=== PATIENT | female | born 1980 | race Caucasian/White ===

== ENCOUNTER → 2016-10-15 | Outpatient (CLI) | payer MEDICARE ==
--- NOTE | 2016-10-15 11:07 | MR ---
PRE AND POSTCONTRAST ENHANCED MRI OF THE BRAIN: CLINICAL HISTORY: Cranial nerve palsy CONTRAST: 6 ML Multihance COMPARISON: 05/13/2016 Multiplanar and multispin-echo imaging of the brain was performed both before and after the administr ation of contrast. The ventricles, basal cisterns and sulci overlying the cerebral convexities are within normal limits. There is no evidence for midline shift or mass effect. Acute intracranial hemorrhage or extra-axial collection is not evident. There are no abnormal areas of increased or decreased signal intensity within the brain parenchyma. Following contrast administration, there is no evidence for pathologic enhancement or enhancing mass. Near-complete opacification right maxillary sinus. Mild mucosal thickening of the ethmoid air cells. IMPRESSION: Unremarkable pre and postcontrast enhanced MRI of the brain. Chronic sinusitis.
== END | disposition home or self-care (01) ==
LOC: RADMRIMAIN 10:12
PROVIDERS: ATTEND Psychiatry & Neurology Pain Medicine
DX: G52.9 Cranial nerve disorder, unspecified (principal)
CPT/HCPCS: 70553; A9577

== ENCOUNTER → 2016-10-15 | Outpatient (CLI) | payer MEDICARE ==
[2016-10-15 12:11] LABS: ALT 34 U/L (9-52); AST 29 U/L (14-36); Alkaline Phosphatase 85 U/L (38-126); Anion Gap 10 mmol/L; Blood Urea Nitrogen 15 mg/dL (7-17); C Reactive Protein <5.0 mg/L (<10.0); Calcium 9.3 mg/dL (8.4-10.2); Carbon Dioxide 25 mmol/L (22-30); Chloride 90 mmol/L (98-107); Glucose 102 mg/dL (74-99); Non-African American GFR(MDRD) >60 (>60 ml/min/1.73 sqM); Potassium 4.6 mmol/L (3.5-5.1); Sodium 125 mmol/L (137-145); Total Bilirubin 0.4 mg/dL (0.2-1.3); Total Protein 7.3 g/dL (6.3-8.2)
[2016-10-15 12:43] LABS: Hemoglobin A1C 5.8 % (4.2-6.1)
== END | disposition home or self-care (01) ==
LOC: LABWHC1 11:04
PROVIDERS: ATTEND Psychiatry & Neurology Neurology
DX: E87.1 Hypo-osmolality and hyponatremia (principal); E08.8 Diabetes mellitus due to underlying condition with unspecified complications; I10 Essential (primary) hypertension; H49.20 Sixth [abducent] nerve palsy, unspecified eye
CPT/HCPCS: 36415; 80053; 83036; 83519; 85652; 86038; 86140

== ENCOUNTER 2016-11-28 18:29 | Emergency (ER) | payer MEDICARE ==
[2016-11-28] MEDS ORDERED: SODIUM CHLORIDE 0.9% 500 ML IV STA (18:53)
[2016-11-28] MEDS ORDERED: FAMOTIDINE 20 MG/2 ML VIAL IV STA (18:54)
--- NOTE | 2016-11-28 18:56 | ED ---
General Adult HPI - General Chief complaint: Nausea/Vomiting/Diarrhea Stated complaint: Vomiting Time Seen by Provider: 11/28/16 18:50 Source: patient, family, RN notes reviewed Mode of arrival: wheelchair Limitations: no limitations - History of Present Illness Initial comments: Patient is a pleasant 36-year-old female presenting to the emergency department complaining of nausea and vomiting. Patient did have sinus surgery done just yesterday. Patient states today she has had nausea and vomiting. Patient believes this is from the sinus surgery. Patient has had some drainage and bleeding that she has swallowed. Patient feels nauseous. No abdominal pain. Patient had sinus surgery secondary to an eye infection. Patient states the eye infection is starting to slowly improve and a sinus surgery was done to hopefully help with this. - Related Data Home Medications Medication Instructions Recorded Confirmed Insulin Aspart [NovoLOG Flexpen] See Protocol SQ AC-TID 12/19/15 11/28/16 Insulin Glargine [Lantus] 3 unit SQ HS 07/26/16 11/28/16 Insulin Glargine [Lantus] 4 unit SQ QAM 07/26/16 11/28/16 Amoxic-Pot Clav 875-125Mg 1 tab PO Q12HR 11/28/16 11/28/16 [Augmentin 875-125] HYDROcodone/APAP 5-325MG [[place] 1 tab PO Q4HR PRN 11/28/16 11/28/16 5-325] Lisinopril [Zestril] 20 mg PO BID 11/28/16 11/28/16 Allergies Allergy/AdvReac Type Severity Reaction Status Date / Time No Known Allergies Allergy Verified 11/28/16 19:06 Review of Systems ROS Statement: Those systems with pertinent positive or pertinent negative responses have been documented in the HPI. ROS Other: All systems not noted in ROS Statement are negative. Constitutional: Denies: fever Eyes: Reports: as per HPI ENT: Reports: as per HPI Respiratory: Denies: cough Cardiovascular: Denies: chest pain Endocrine: Denies: fatigue Gastrointestinal: Reports: nausea, vomiting. Denies: abdominal pain Genitourinary: Denies: dysuria Musculoskeletal: Denies: back pain Skin: Denies: rash Neurological: Denies: weakness Past Medical History Past Medical History: Diabetes Mellitus, Hypertension Additional Past Medical History / Comment(s): anorexia; nerve palsy right eye History of Any Multi-Drug Resistant Organisms: None Reported Past Surgical History: Orthopedic Surgery Additional Past Surgical History / Comment(s): rt hip, sinus surgery Past Anesthesia/Blood Transfusion Reactions: No Reported Reaction Past Psychological History: Anxiety Smoking Status: Never smoker Past Alcohol Use History: None Reported Past Drug Use History: None Reported - Past Family History Mother Family Medical History: Hypertension General Exam Limitations: no limitations General appearance: alert, in no apparent distress, cachectic Head exam: Present: atraumatic Eye exam: Present: other (Left eye appears normal. Right eye is patched) ENT exam: Present: normal oropharynx, other (Mild oozing from bilateral nares) Neck exam: Present: normal inspection Respiratory exam: Present: normal lung sounds bilaterally Cardiovascular Exam: Present: normal rhythm, tachycardia Expanded Peripheral pulses: 2+: Radial (R), Radial (L), Dorsalis Pedis (R), Dorsalis Pedis (L) GI/Abdominal exam: Present: soft. Absent: distended, tenderness, guarding, rebound, rigid Extremities exam: Present: normal inspection Neurological exam: Present: alert Psychiatric exam: Present: normal affect, normal mood Skin exam: Absent: rash Course Vital Signs 11/28/16 18:42 Temperature 98.4 F Pulse Rate 120 H Respiratory 20 Rate Blood Pressure 141/93 O2 Sat by Pulse 96 Oximetry Medical Decision Making - Medical Decision Making Patient reevaluated and resting comfortably in bed. Patient states hyponatremia is chronic. Patient still has some nausea. Patient has had problems previously with Reglan. Patient does not want Benadryl. Patient is receptive to Bentyl and Protonix. - Lab Data Result diagrams: 11/28/16 18:54 11/28/16 18:54 Lab Results 11/28/16 11/28/16 Range/Units 18:54 18:54 WBC 9.7 (3.8-10.6) k/uL RBC 3.75 L (3.80-5.40) m/uL Hgb 11.9 (11.4-16.0) gm/dL Hct 36.0 (34.0-46.0) % MCV 95.8 (80.0-100.0) fL MCH 31.8 (25.0-35.0) pg MCHC 33.2 (31.0-37.0) g/dL RDW 12.5 (11.5-15.5) % Plt Count 254 (150-450) k/uL Neutrophils % 86 % Lymphocytes % 6 % Monocytes % 6 % Eosinophils % 1 % Basophils % 0 % Neutrophils # 8.3 H (1.3-7.7) k/uL Lymphocytes # 0.6 L (1.0-4.8) k/uL Monocytes # 0.6 (0-1.0) k/uL Eosinophils # 0.1 (0-0.7) k/uL Basophils # 0.0 (0-0.2) k/uL Sodium 129 L (137-145) mmol/L Potassium 5.0 (3.5-5.1) mmol/L Chloride 95 L (98-107) mmol/L Carbon Dioxide 23 (22-30) mmol/L Anion Gap 11 mmol/L BUN 15 (7-17) mg/dL Creatinine 0.64 (0.52-1.04) mg/dL Est GFR (MDRD) Af Amer >60 (>60 ml/min/1.73 sqM) Est GFR (MDRD) Non-Af >60 (>60 ml/min/1.73 sqM) Glucose 132 H (74-99) mg/dL Calcium 9.7 (8.4-10.2) mg/dL Total Bilirubin 0.8 (0.2-1.3) mg/dL AST 39 H (14-36) U/L ALT 26 (9-52) U/L Alkaline Phosphatase 91 (38-126) U/L Total Protein 7.9 (6.3-8.2) g/dL Albumin 4.6 (3.5-5.0) g/dL Disposition Clinical Impression: Nausea and vomiting Disposition: HOME SELF-CARE Instructions: Acute Nausea and Vomiting (ED) Additional Instructions: Please follow-up with your primary care physician and surgeon in the beginning of the week. Return for uncontrolled vomiting, not tolerating fluids, bleeding , worsening symptoms or other concerns. Referrals: Herman Ford MD [Primary Care Provider] - 1-2 days Time of Disposition: 20:27
[2016-11-28] MEDS: ONDANSETRON 4 MG/2 ML VIAL IVP STA ×2 (18:58→19:34)
[2016-11-28 19:17] LABS: Basophils % (A) 0 %; CH 32.9; CHCM 34.5; Eosinophils # (A) 0.1 k/uL (0-0.7); Eosinophils % (A) 1 %; HDW 2.37; HGB 11.9 gm/dL (11.4-16.0); Luc # (Auto) 0.08; Luc % (Auto) 1; Lymphocytes # (A) 0.6 k/uL (1.0-4.8); Lymphocytes % (A) 6 %; MCH 31.8 pg (25.0-35.0); MCHC 33.2 g/dL (31.0-37.0); MCV 95.8 fL (80.0-100.0); Mean Platelet Volume 6.3; Monocytes # (A) 0.6 k/uL (0-1.0); Monocytes % (A) 6 %; Neutrophils # (A) 8.3 k/uL (1.3-7.7); Neutrophils % (A) 86 %; RBC 3.75 m/uL (3.80-5.40); RDW 12.5 % (11.5-15.5); WBC 9.7 k/uL (3.8-10.6)
[2016-11-28 19:41] LABS: ALT 26 U/L (9-52); AST 39 U/L (14-36); Alkaline Phosphatase 91 U/L (38-126); Anion Gap 11 mmol/L; Blood Urea Nitrogen 15 mg/dL (7-17); Calcium 9.7 mg/dL (8.4-10.2); Carbon Dioxide 23 mmol/L (22-30); Chloride 95 mmol/L (98-107); Glucose 132 mg/dL (74-99); Non-African American GFR(MDRD) >60 (>60 ml/min/1.73 sqM); Sodium 129 mmol/L (137-145); Total Bilirubin 0.8 mg/dL (0.2-1.3); Total Protein 7.9 g/dL (6.3-8.2)
[2016-11-28] MEDS ORDERED: DICYCLOMINE 10 MG/ML 2 ML AMP IM STA (20:26)
[2016-11-28] MEDS ORDERED: PANTOPRAZOLE 40 MG/10 ML VIAL IVP STA (20:26)
[2016-11-28 21:31] VITALS: BP 144/85; PULSE 103; RESP 16; TEMP 98.7
== END 2016-11-28 21:31 | disposition home or self-care (01) ==
LOC: EC 18:29
DX: R11.2 Nausea with vomiting, unspecified (principal); E11.9 Type 2 diabetes mellitus without complications; I10 Essential (primary) hypertension; F41.9 Anxiety disorder, unspecified; Z79.4 Long term (current) use of insulin; Z79.899 Other long term (current) drug therapy
CPT/HCPCS: 36415; 80053; 85025; 99284; 96374; 96375 ×2; 96361; 96372; J0500; J2405; C9113

== ENCOUNTER → 2017-05-08 | Outpatient (CLI) | payer MEDICARE ==
--- NOTE | 2017-05-08 10:01 | MR ---
EXAMINATION TYPE: MR brain wo/w con DATE OF EXAM: 05/08/2017 9:36 AM COMPARISON: Previous study dated 10/15/2016 HISTORY: Double vision, facial/eye pain, 6th central nerve palsy TECHNIQUE: Multiplanar, multiecho imaging of the brain was obtained with and without intravenous adm inistration of 3 mL intravenous Gadavist. FINDINGS: Central structures are midline. There is a normal craniocervical junction. Echoplanar diffusion imaging is normal. There is chronic mucoperiosteal thickening involving the right maxillary sinus. Both orbits are unremarkable. There are normal vascular flow voids present bilaterally. There is no evidence of a CP angle mass lesion. There is no focal lesion, mass effect or midline shift identified. I do not see evidence of intracran ial blood. Following the intravenous administration of gadolinium, no abnormal enhancement is seen. IMPRESSION: 1. NO ACUTE INTRACRANIAL ABNORMALITY. 2. 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
== END | disposition home or self-care (01) ==
LOC: RADMRIMAIN 08:58
PROVIDERS: ATTEND Psychiatry & Neurology Pain Medicine
DX: H49.20 Sixth [abducent] nerve palsy, unspecified eye (principal)
CPT/HCPCS: 70553; A9581

== ENCOUNTER 2017-06-21 05:04 | Inpatient (IN) | payer MEDICARE ==
[2017-06-21] MEDS ORDERED: SODIUM CHLORIDE 0.9% 500 ML IV STA (05:16)
--- NOTE | 2017-06-21 05:19 | ED ---
General Adult HPI - General Chief complaint: Syncope Stated complaint: syncope/fall Time Seen by Provider: 06/21/17 05:05 Source: patient, EMS, RN notes reviewed, old records reviewed Mode of arrival: EMS Limitations: no limitations - History of Present Illness Initial comments: 37-year-old female with history of anorexia and type 1 diabetes presents with syncopal episode. Patient was at home, woke up feeling very shaky. Checked her blood sugar was 44. Patient sat down to eat something, became very nauseated and the next thing she remembers she was on the ground. Patient is accompanied by her mother who states she regained consciousness after collapse. No seizure-like activity. Patient is complaining of headache and pain in her tailbone. Denies any changes in her insulin regimen. Denies chest pain. Denies current nausea or vomiting. Denies fever or chills. Denies diarrhea. - Related Data Home Medications Medication Instructions Recorded Confirmed Insulin Aspart [NovoLOG Flexpen] See Protocol SQ AC-TID 12/19/15 06/21/17 Insulin Glargine [Lantus] 3 unit SQ HS 07/26/16 06/21/17 Insulin Glargine [Lantus] 4 unit SQ QAM 07/26/16 06/21/17 Amoxic-Pot Clav 875-125Mg 1 tab PO Q12HR 11/28/16 06/21/17 [Augmentin 875-125] HYDROcodone/APAP 5-325MG [[place] 1 tab PO Q4HR PRN 11/28/16 06/21/17 5-325] Lisinopril [Zestril] 20 mg PO BID 11/28/16 06/21/17 Allergies Allergy/AdvReac Type Severity Reaction Status Date / Time No Known Allergies Allergy Verified 06/21/17 05:09 Review of Systems ROS Statement: Those systems with pertinent positive or pertinent negative responses have been documented in the HPI. ROS Other: All systems not noted in ROS Statement are negative. Past Medical History Past Medical History: Diabetes Mellitus, Hypertension Additional Past Medical History / Comment(s): anorexia; nerve palsy right eye History of Any Multi-Drug Resistant Organisms: None Reported Past Surgical History: Orthopedic Surgery Additional Past Surgical History / Comment(s): rt hip, sinus surgery Past Anesthesia/Blood Transfusion Reactions: No Reported Reaction Past Psychological History: Anxiety, Depression Smoking Status: Never smoker Past Alcohol Use History: None Reported Past Drug Use History: None Reported - Past Family History Mother Family Medical History: Hypertension General Exam Limitations: no limitations General appearance: alert, in no apparent distress, cachectic Head exam: Present: atraumatic, normocephalic Eye exam: Present: normal appearance, PERRL ENT exam: Present: mucous membranes dry Neck exam: Present: normal inspection, full ROM. Absent: tenderness, meningismus Respiratory exam: Present: normal lung sounds bilaterally. Absent: respiratory distress Cardiovascular Exam: Present: regular rate, normal rhythm GI/Abdominal exam: Present: soft. Absent: distended, tenderness Extremities exam: Present: normal inspection, normal capillary refill Neurological exam: Present: alert, oriented X3, CN II-XII intact. Absent: motor sensory deficit Psychiatric exam: Present: normal affect, normal mood Skin exam: Present: warm, dry, intact Course Vital Signs 06/21/17 06/21/17 06/21/17 05:05 06:08 06:39 Temperature 97.1 F L 97.8 F 97.9 F Pulse Rate 67 77 81 Respiratory 20 20 18 Rate Blood Pressure 120/75 109/70 103/64 O2 Sat by Pulse 100 98 100 Oximetry - Reevaluation(s) Reevaluation #1: 06/21/17 07:09 Patient's primary care physician paged and called from the emergency department with no response. I will admit awaiting callback. EKG Findings - EKG Comments: EKG Findings:: EKG shows normal sinus rhythm, right axis deviation, ventricular rate 66, OK interval 126, castration 76, QTC 419, no signs of ischemia. Medical Decision Making - Medical Decision Making 37-year-old female presenting with syncopal episode. Patient did have a blood sugar 44 at home. Blood sugar in the emergency Department is normal. No change in her insulin regimen. Given the fall with head injury, head CT is obtained, this is negative for intracranial hemorrhage, cervical spine negative for fracture subluxation. Chest x-ray shows no acute findings. Pelvic x-ray shows no acute bony abnormality. White blood cell count normal 9.6, hemoglobin stable 12.4. Sodium is 120, patient does have history of chronic hyponatremia and baseline around 1:30. Urinalysis is pending. Diagnosis: Syncope, hyponatremia, hypoglycemia resolved - Lab Data Result diagrams: 06/21/17 05:30 06/21/17 05:30 Lab Results 06/21/17 06/21/17 06/21/17 Range/Units 05:23 05:30 05:30 WBC 9.6 (3.8-10.6) k/uL RBC 4.11 (3.80-5.40) m/uL Hgb 12.2 (11.4-16.0) gm/dL Hct 36.9 (34.0-46.0) % MCV 89.8 (80.0-100.0) fL MCH 29.7 (25.0-35.0) pg MCHC 33.1 (31.0-37.0) g/dL RDW 14.0 (11.5-15.5) % Plt Count 266 (150-450) k/uL Neutrophils % 57 % Lymphocytes % 31 % Monocytes % 7 % Eosinophils % 3 % Basophils % 0 % Neutrophils # 5.5 (1.3-7.7) k/uL Lymphocytes # 3.0 (1.0-4.8) k/uL Monocytes # 0.6 (0-1.0) k/uL Eosinophils # 0.3 (0-0.7) k/uL Basophils # 0.0 (0-0.2) k/uL PT (9.0-12.0) sec INR (<1.2) APTT (22.0-30.0) sec Sodium (137-145) mmol/L Potassium (3.5-5.1) mmol/L Chloride (98-107) mmol/L Carbon Dioxide (22-30) mmol/L Anion Gap mmol/L BUN (7-17) mg/dL Creatinine (0.52-1.04) mg/dL Est GFR (MDRD) Af Amer (>60 ml/min/1.73 sqM) Est GFR (MDRD) Non-Af (>60 ml/min/1.73 sqM) Glucose (74-99) mg/dL POC Glucose (mg/dL) 88 (75-99) mg/dL POC Glu Feeder Switchboard Operator ID Nas Silverman Calcium (8.4-10.2) mg/dL Magnesium (1.6-2.3) mg/dL Total Bilirubin (0.2-1.3) mg/dL AST (14-36) U/L ALT (9-52) U/L Alkaline Phosphatase (38-126) U/L Total Creatine Kinase 212 H (30-135) U/L CK-MB (CK-2) 3.8 H* (0.0-2.4) ng/mL CK-MB (CK-2) Rel Index 1.8 Troponin I <0.012 (0.000-0.034) ng/mL Total Protein (6.3-8.2) g/dL Albumin (3.5-5.0) g/dL 06/21/17 06/21/17 Range/Units 05:30 05:30 WBC (3.8-10.6) k/uL RBC (3.80-5.40) m/uL Hgb (11.4-16.0) gm/dL Hct (34.0-46.0) % MCV (80.0-100.0) fL MCH (25.0-35.0) pg MCHC (31.0-37.0) g/dL RDW (11.5-15.5) % Plt Count (150-450) k/uL Neutrophils % % Lymphocytes % % Monocytes % % Eosinophils % % Basophils % % Neutrophils # (1.3-7.7) k/uL Lymphocytes # (1.0-4.8) k/uL Monocytes # (0-1.0) k/uL Eosinophils # (0-0.7) k/uL Basophils # (0-0.2) k/uL PT 10.7 (9.0-12.0) sec INR 1.1 (<1.2) APTT 21.3 L (22.0-30.0) sec Sodium 120 L* (137-145) mmol/L Potassium 4.8 (3.5-5.1) mmol/L Chloride 89 L (98-107) mmol/L Carbon Dioxide 23 (22-30) mmol/L Anion Gap 8 mmol/L BUN 16 (7-17) mg/dL Creatinine 0.83 (0.52-1.04) mg/dL Est GFR (MDRD) Af Amer >60 (>60 ml/min/1.73 sqM) Est GFR (MDRD) Non-Af >60 (>60 ml/min/1.73 sqM) Glucose 115 H (74-99) mg/dL POC Glucose (mg/dL) (75-99) mg/dL POC Glu Feeder Switchboard Operator ID Calcium 9.2 (8.4-10.2) mg/dL Magnesium 1.9 (1.6-2.3) mg/dL Total Bilirubin 0.3 (0.2-1.3) mg/dL AST 29 (14-36) U/L ALT 31 (9-52) U/L Alkaline Phosphatase 93 (38-126) U/L Total Creatine Kinase (30-135) U/L CK-MB (CK-2) (0.0-2.4) ng/mL CK-MB (CK-2) Rel Index Troponin I (0.000-0.034) ng/mL Total Protein 6.8 (6.3-8.2) g/dL Albumin 4.0 (3.5-5.0) g/dL Disposition Clinical Impression: Syncope and collapse, Hyponatremia Disposition: ADMITTED IP TO THIS [facility] Condition: Stable Decision to Admit Reason: Admit from EC Decision Date: 06/21/17 Decision Time: 06:52
[2017-06-21 05:26] LABS: Glucose,Whole Blood 88 mg/dL (75-99)
[2017-06-21 05:38] LABS: Basophils % (A) 0 %; CH 30.1; CHCM 33.6; Eosinophils # (A) 0.3 k/uL (0-0.7); Eosinophils % (A) 3 %; HCT 36.9 % (34.0-46.0); HDW 2.26; HGB 12.2 gm/dL (11.4-16.0); Luc # (Auto) 0.13; Luc % (Auto) 1; Lymphocytes % (A) 31 %; MCH 29.7 pg (25.0-35.0); MCHC 33.1 g/dL (31.0-37.0); MCV 89.8 fL (80.0-100.0); Mean Platelet Volume 6.8; Monocytes # (A) 0.6 k/uL (0-1.0); Monocytes % (A) 7 %; Neutrophils # (A) 5.5 k/uL (1.3-7.7); Neutrophils % (A) 57 %; RBC 4.11 m/uL (3.80-5.40); WBC 9.6 k/uL (3.8-10.6)
[2017-06-21 05:48] LABS: ALT 31 U/L (9-52); AST 29 U/L (14-36); Alkaline Phosphatase 93 U/L (38-126); Anion Gap 8 mmol/L; Blood Urea Nitrogen 16 mg/dL (7-17); Calcium 9.2 mg/dL (8.4-10.2); Carbon Dioxide 23 mmol/L (22-30); Chloride 89 mmol/L (98-107); Glucose 115 mg/dL (74-99); Magnesium 1.9 mg/dL (1.6-2.3); Non-African American GFR(MDRD) >60 (>60 ml/min/1.73 sqM); Potassium 4.8 mmol/L (3.5-5.1); Total Bilirubin 0.3 mg/dL (0.2-1.3); Total Protein 6.8 g/dL (6.3-8.2)
[2017-06-21 05:52] LABS: Sodium 120 mmol/L (137-145)
[2017-06-21 06:02] LABS: INR 1.1 (<1.2); Prothrombin Time 10.7 sec (9.0-12.0)
[2017-06-21 06:04] LABS: Creatine Kinase 212 U/L (30-135)
[2017-06-21 06:07] LABS: Partial Thromboplastin Time 21.3 sec (22.0-30.0)
[2017-06-21 06:18] LABS: Troponin I <0.012 ng/mL (0.000-0.034)
[2017-06-21 06:22] LABS: Creatine Kinase MB 3.8 ng/mL (0.0-2.4)
--- NOTE | 2017-06-21 06:35 | CT ---
EXAM: CT Head Without Intravenous Contrast CLINICAL HISTORY: Syncope TECHNIQUE: Axial computed tomography images of the head/brain without intravenous contrast. CTDI is 57.4 mGy and DLP is 961 mGy-cm. This CT exam was performed using one or more of the following dose reduction techniques: automated exposure control, adjustment of the mA and/or kV according to patient size, and/or use of iterative reconstruction technique. COMPARISON: CT head dated 05/12/2016 FINDINGS: Brain: No evidence of acute infarct, hemorrhage, mass or edema. No significant white matter disease. Ventricles: Unremarkable. No ventriculomegaly. Bones/joints: Unremarkable. No acute fracture. Soft tissues: Unremarkable. Sinuses: Mild mucosal thickening of paranasal sinuses. Mastoid air cells: Unremarkable as visualized. No mastoid effusion. IMPRESSION: No acute findings. EXAM: CT Cervical Spine Without Intravenous Contrast CLINICAL HISTORY: Syncope TECHNIQUE: Axial computed tomography images of the cervical spine without intravenous contrast. CTDI is 13.5 mGy and DLP is 262 mGy-cm. This CT exam was performed using one or more of the following dose reduction techniques: automated exposure control, adjustment of the mA and/or kV according to patient size, and/or use of iterative reconstruction technique. COMPARISON: No relevant prior studies available. FINDINGS: Vertebrae: No acute fracture or traumatic malalignment. Straightening of the normal cervical lordosis, likely positional. Discs/spinal canal/neural foramina: No acute findings. No spinal canal stenosis. Soft tissues: Unremarkable. Lung apices: Unremarkable as visualized. IMPRESSION: No acute findings.
--- NOTE | 2017-06-21 06:37 | XR ---
EXAM: XR Chest, 1 View CLINICAL HISTORY: Syncope TECHNIQUE: Frontal view of the chest. COMPARISON: No relevant prior studies available. FINDINGS: Lungs: Unremarkable. No consolidation. Pleural space: Unremarkable. No pneumothorax. Heart: Unremarkable. No cardiomegaly. Mediastinum: Unremarkable. Bones/joints: Unremarkable. IMPRESSION: Normal chest x-ray.
[2017-06-21] MEDS: SODIUM CHLORIDE 0.9% 1,000 ML IV SCH ×2 (06:38→21:54)
--- NOTE | 2017-06-21 06:43 | XR ---
EXAM: XR Pelvis, 1 or 2 Views CLINICAL HISTORY: Pain TECHNIQUE: Frontal view of the pelvis. COMPARISON: No relevant prior studies available. FINDINGS: Bones/joints: Dynamic hip screw and medullary medardo noted within the right femur. No evidence of acute fracture or traumatic malalignment. Soft tissues: Unremarkable. IMPRESSION: No acute findings.
[2017-06-21] MEDS ORDERED: ACETAMINOPHEN TAB 325 MG TAB PO PRN (06:55)
[2017-06-21] MEDS ORDERED: NALOXONE 0.4 MG/ML 1 ML VIAL IV PRN (06:55)
[2017-06-21] MEDS ORDERED: HYDROcodone/APAP 5-325MG 1 EACH TAB PO PRN (07:14)
[2017-06-21 07:33] LABS: Appearance,Urine Clear (Clear); Bilirubin,Urine Negative (Negative); Glucose,Urine (UA) Negative (Negative); Ketones,Urine Negative (Negative); Leukocyte Esterase,Urine Trace (Negative); Nitrite,Urine Negative (Negative); PH, Urine 7.5 (5.0-8.0); Particle Count 507; Protein,Urine Trace (Negative); Specific Gravity,Urine 1.004 (1.001-1.035); UA Billing (MACRO vs. MICRO) MICRO; Urobilinogen,Urine <2.0 mg/dL (<2.0); WBC,Urine 9 /hpf (0-5)
[2017-06-21] MEDS ORDERED: INSULIN DETEMIR 100 UNIT/ML 10 ML VIAL SQ SCH ×2 (09:00→21:00)
[2017-06-21 11:39] VITALS: RESP 18
[2017-06-21] MEDS: LANTUS SQ SCH (11:54)
[2017-06-21 12:04] LABS: Glucose,Whole Blood 81 mg/dL (75-99)
[2017-06-21 15:23] VITALS: BMI 11.5
[2017-06-21 16:52] LABS: Glucose,Whole Blood 75 mg/dL (75-99)
[2017-06-21 20:41] LABS: Glucose,Whole Blood 118 mg/dL (75-99)
[2017-06-21] MEDS ORDERED: LANTUS SQ SCH (21:00)
[2017-06-21] MEDS ORDERED: LISINOPRIL 20 MG TAB PO STA (21:52)
[2017-06-21] MEDS: AMOXICILLIN 250 MG CAP PO SCH (21:54)
[2017-06-22 04:57] LABS: Glucose,Whole Blood 35 mg/dL (75-99)
[2017-06-22 05:05] LABS: Glucose,Whole Blood 56 mg/dL (75-99)
[2017-06-22 05:35] LABS: Glucose,Whole Blood 145 mg/dL (75-99)
[2017-06-22 06:08] LABS: Basophils % (A) 0 %; CH 29.6; CHCM 32.1; Eosinophils # (A) 0.1 k/uL (0-0.7); Eosinophils % (A) 3 %; HCT 28.4 % (34.0-46.0); HDW 2.24; Luc # (Auto) 0.04; Luc % (Auto) 1; Lymphocytes # (A) 0.7 k/uL (1.0-4.8); Lymphocytes % (A) 28 %; MCH 30.1 pg (25.0-35.0); MCHC 32.5 g/dL (31.0-37.0); MCV 92.6 fL (80.0-100.0); Mean Platelet Volume 7.3; Monocytes # (A) 0.3 k/uL (0-1.0); Monocytes % (A) 10 %; Neutrophils # (A) 1.5 k/uL (1.3-7.7); Neutrophils % (A) 58 %; RBC 3.06 m/uL (3.80-5.40); RDW 14.5 % (11.5-15.5); WBC 2.6 k/uL (3.8-10.6)
[2017-06-22 06:10] LABS: HGB 9.2 gm/dL (11.4-16.0)
[2017-06-22 06:19] LABS: ALT 31 U/L (9-52); AST 29 U/L (14-36); Alkaline Phosphatase 72 U/L (38-126); Anion Gap 9 mmol/L; Blood Urea Nitrogen 13 mg/dL (7-17); Calcium 8.9 mg/dL (8.4-10.2); Carbon Dioxide 21 mmol/L (22-30); Chloride 100 mmol/L (98-107); Glucose 144 mg/dL (74-99); Magnesium 1.8 mg/dL (1.6-2.3); Non-African American GFR(MDRD) >60 (>60 ml/min/1.73 sqM); Potassium 4.5 mmol/L (3.5-5.1); Sodium 130 mmol/L (137-145); Total Bilirubin 0.2 mg/dL (0.2-1.3)
[2017-06-22] MEDS: LANTUS SQ SCH (08:23)
[2017-06-22] MEDS: AMOXICILLIN 250 MG CAP PO SCH (08:24)
[2017-06-22] MEDS ORDERED: LISINOPRIL 20 MG TAB PO SCH ×2 (09:00→21:00)
[2017-06-22 09:15] VITALS: TEMP 97.1
[2017-06-22 11:34] LABS: Glucose,Whole Blood 96 mg/dL (75-99)
[2017-06-22] MEDS: INSULIN ASPART 100 UNIT/ML 1 ML 10 ML VIAL SQ SCH ×2 (12:00→12:01)
[2017-06-22 14:58] VITALS: BP 152/90; PULSE 70
--- NOTE | 2017-06-22 16:29 | HP ---
HISTORY AND PHYSICAL CHIEF COMPLAINT: Syncope. HISTORY OF PRESENT ILLNESS: This is another admission for this 37-year-old, white female with anorexia nervosa. She apparently had a syncopal episode at home and came to the emergency room. She had no loss of sphincter control. She did contuse the back of her head. In the emergency room her sodium was low at 120 and she was admitted. She denied any chest pain, diaphoresis, fever, chills, diarrhea, vomiting, melena, hematochezia, urinary complaints, etc. Past medical history, family history, personal and social histories were all otherwise unremarkable. ALLERGIES: ALLERGIES SHE CANNOT TAKE ANY NSAIDs. MEDICATIONS: Se is on lisinopril 40 mg once a day, Lantus 4 units in the morning and 2 at night, NovoLog sliding scale, vitamin D 50,000 units a month, and multivitamin. She does not smoke or drink. PHYSICAL EXAMINATION: Blood pressure is 115/64 with a pulse 64, respirations 14, she is afebrile. In general, she appeared to be cachectic, slightly pale and chronically ill. Head, ears, eyes, nose, mouth, and throat were unremarkable. Neck veins not distended. There were no thyroid masses. Carotids normal. Chest is clear. Cardiac exam demonstrates sinus tachycardia. The abdomen is scaphoid. No masses or tenderness. EXTREMITIES: Normal except for poor muscle bulk. Neurological she is intact. IMPRESSION: 1. Syncope. 2. Contusion to the back of the head. 3. Hyponatremia. 4. Insulin-dependent diabetes mellitus. 5. Anorexia nervosa. PLAN: 1. Bed rest. 2. IV fluids. 3. Telemetry. 4. Look for other etiologies of syncope other than the hyponatremia. MMODL / IJN: [id number] /
[2017-06-22 16:48] LABS: Glucose,Whole Blood 146 mg/dL (75-99)
--- NOTE | 2017-06-22 17:59 | DS ---
DISCHARGE SUMMARY CHIEF COMPLAINT: Syncope and hyponatremia. HISTORY OF PRESENT ILLNESS AND PHYSICAL EXAM: Details of this lady's history and physical can be found in the initial workup. LABORATORY STUDIES: While she was in the hospital, she had laboratory studies, details which can be found in the laboratory section of her chart. COURSE IN HOSPITAL: After admission, she was placed on bedrest, started on intravenous fluids and monitored neurologically and with telemetry. She had no problems or complications in the hospital except she developed some pain in the left mandibular area secondary to an infected tooth. Sodium came up nicely and it was felt that she could go home on the . She will come to the office in a day or two and she will be sent home on Amoxil 250 t.i.d. for the dental issue along with other medications. FINAL DIAGNOSES: 1. Syncopal episode, etiology unknown. 2. Hyponatremia. 3. Periapical abscess of the left mandibular molar. 4. Anorexia nervosa. 5. Diabetes mellitus. OPERATIONS: None. CONSULTATIONS: None. She was improved. ANKUSH / SANJIV: [id number] /
== END 2017-06-22 17:02 | disposition home or self-care (01) | DRG 312 ==
LOC: EC 05:04 → 6SEL 06:55
PROVIDERS: ADMIT Family Medicine; ATTEND Family Medicine
DX: R55 Syncope and collapse (principal); R64 Cachexia; F50.00 Anorexia nervosa, unspecified; H49.21 Sixth [abducent] nerve palsy, right eye; E10.649 Type 1 diabetes mellitus with hypoglycemia without coma; S00.03XA Contusion of scalp, initial encounter; K04.7 Periapical abscess without sinus; E87.1 Hypo-osmolality and hyponatremia; Z68.1 Body mass index [BMI] 19.9 or less, adult; I10 Essential (primary) hypertension; Z79.4 Long term (current) use of insulin; Z79.899 Other long term (current) drug therapy; Z86.59 Personal history of other mental and behavioral disorders; Z88.8 Allergy status to other drugs, medicaments and biological substances
CPT/HCPCS: 36415; 70450; 71010; 72125; 72170; 80053; 81001; 81025; 82550; 82553; 83735; 84484; 85025; 85610; 85730; 93005; 96360; 99285

== ENCOUNTER → 2018-05-14 | Outpatient (CLI) | payer MEDICARE ==
--- NOTE | 2018-05-14 17:34 | CT ---
EXAMINATION TYPE: CT sinus wo con DATE OF EXAM: 05/14/2018 COMPARISON: NONE HISTORY: Chronic sinusitis, double vision. History of sinus surgery in 2017 CT DLP: 590.1 mGycm. Automated Exposure Control for Dose Reduction was Utilized. TECHNIQUE: CT scan of the sinuses is performed without contrast, axial images are obtained, coronal r eformatted images are also reviewed. FINDINGS: There is mild mucosal thickening within the left ethmoid sinuses. Mucosal retention cyst wi thin the right anterior sinus measures 1.0 cm. Antrostomy defects are seen bilaterally. Remaining vis ualized paranasal sinuses and mastoid air cells are well aerated. Surgically augmented ostiomeatal co mplexes are widely patent. There is slight undulation without significant deviation of the intact alejandra al septum. Nasal spine and nasal bone also appear intact as do the bony orbits. No mucosal hypertroph y of the nasal turbinates. Mandibular condyles are located within the mandibular fossa. Exam is limit ed for evaluation of the intracranial structures given technique. There is disconjugate gaze. No engo rgement of the superior ophthalmic veins. Extraocular muscles appear symmetric other than very mild q uestionable enlargement of the right medial rectus muscle on series 8 image 24. No proptosis. Lenses are also symmetric as are the optic nerves. No post septal or preseptal soft tissue swelling. IMPRESSION: 1. Right maxillary mucosal retention cyst and mild mucosal thickening of the left ethmoid sinuses. Griffith rgically augmented ostiomeatal complexes are widely patent. 2. Disconjugate gaze is incidentally noted. There is questionable thickening of the medial rectus mus culature on the right. Correlate for thyroid ophthalmopathy with thyroid lab values.
== END ==
LOC: RADCTMAIN 08:18
PROVIDERS: ATTEND Otolaryngology
DX: M27.40 Unspecified cyst of jaw (principal); J34.89 Other specified disorders of nose and nasal sinuses
CPT/HCPCS: 70486